=== PATIENT | female | born 1965 | race Caucasian/White ===

== ENCOUNTER → 2018-06-20 | Outpatient (CLI) | payer OTHER ==
--- NOTE | 2018-06-20 14:55 | KCIC ---
EXAM: MRI left shoulder DATE: 06/20/2018 11:00 AM COMPARISON: None INDICATION: Left shoulder pain following injury TECHNIQUE: Multiplanar multisequence MR imaging of the left shoulder was performed without IV contrast. FINDINGS: There is marked edema centered at the AC joint with associated soft tissue edema. This is most suspicious for low-grade AC sprain and associated bony contusion/reactive marrow change without or associated fracture plane. AC joint is congruent. Coracoclavicular ligaments are intact. No os acromiale. Trace subacromial-subdeltoid bursal fluid likely bursitis. No definite rotator cuff tear is identified. Normal muscle signal and bulk. The intra and extra articular long head biceps tendons are seen in good position, intact. Evaluation for labral tear is limited on this nonarthrographic study. Within these constraints, no discrete labral tear is identified. No full-thickness cartilage defect is identified. No fracture or osteonecrosis. IMPRESSION: 1. Edema centered at the AC joint including capsular edema is most consistent with low-grade AC sprain with intact coracoclavicular ligaments. No discrete fracture plane although marrow edema may also be from contusion or reactive. 2. Rotator cuff is intact. 3. The intra-articular and extra-articular long head biceps tendon is intact. Electronically signed by: Oscar Arroyo MD (06/20/2018 2:51 PM) [id number]
== END | disposition home or self-care (01) ==
LOC: KCIC MRI 10:46
PROVIDERS: ATTEND Registered Nurse
DX: M25.412 Effusion, left shoulder (principal)
CPT/HCPCS: 73221

== ENCOUNTER → 2018-08-16 | Outpatient (CLI) | payer OTHER ==
[~2018-08-16] MED LIST: 0.9 % SODIUM CHLORIDE 10 ML DISP.SYRIN. ID ONE; CONTRAST GIVEN. MC PRN; GADOBUTROL 7.5 MMOL/7.5 ML VIAL INT ART ONE; IOHEXOL 300 MG/ML 50 ML VIAL. INT ART ONE; LIDOCAINE 1% Multi-Dose 20 ML VIAL. ID ONE
--- NOTE | 2018-08-16 15:14 | KCIC ---
Fluoroscopic guided left shoulder injection dated 08/16/2018: No comparison available. Clinical Indication: Gadolinium injection for MRI. Technical factors: The potential benefits and risks of the procedure were discussed with the patient and informed consent was obtained. The anterior left shoulder was prepped and draped in a sterile fashion. After local anesthesia, a 22-gauge spinal needle was inserted into the left shoulder joint using an anterior approach.Following negative aspiration, 15 cc's of a solution of 5cc Omnipaque contrast, 5 cc 1% lidocaine, 10 cc normal saline, and 0.1 cc gadolinium was injected without difficulty. The needle was then removed and a dry sterile dressing was applied. The patient was then sent to the MR suite for imaging. The patient tolerated the procedure well. Findings: Single fluoroscopic image shows needle tip at the medial inferior 1/3 of the humeral head. Contrast material extends into the joint space. 34 seconds fluoroscopic time used. One image. Impression: Fluoroscopic guided left shoulder injection for MRI as described above. Electronically signed by: Randall Melara MD (08/16/2018 3:11 PM) [id number]
--- NOTE | 2018-08-16 15:54 | KCIC ---
MR arthrogram left shoulder dated 08/16/2018. Comparison made to 06/20/2018. CLINICAL INDICATION: Left shoulder pain and decreased range of motion. Technique: Fat-saturated T1 weighted imaging performed in the coronal, axial and abduction external rotation planes following the intra-articular injection of dilute gadolinium. Injection portion of the study was performed by different radiologist and procedural details will be reported separately. In addition, standard T2-weighted imaging performed in 3 planes along with a nonfat saturated T1 sagittal sequence. FINDINGS: Again noted is focal T2 hyperintense signal within the marrow of the distal clavicle and acromion with irregularity of the articular surfaces. There is also capsular thickening and periarticular edema, unchanged from prior fracture line. No significant AC separation. No significant subacromial/subdeltoid bursal fluid collection. Marrow signal is otherwise homogeneous. Suprascapular and spinoglenoid notches are clear. No significant muscle edema or muscle atrophy. Minimal increased signal within the supraspinatus tendon footplate. Rotator cuff is otherwise intact. No full-thickness tear or significant partial-thickness defect. Subscapularis is intact. There is some minimal increased signal within the substance along the biceps tendon proximally. Extra articular portion courses within the bicipital groove. Biceps anchor intact. Glenoid labrum is grossly intact. No apparent labral tear or para labral cyst. No glenohumeral joint effusion or loose body. There is adequate distention of the joint space with contrast material. IMPRESSION: 1. Focal edema within the marrow of the distal clavicle and acromion with subtle erosive changes at the AC joint. Findings are similar to prior study. Although this could represent a low-grade AC sprain injury, clavicular osteolysis is another consideration. Consider repetitive microtrauma. Inflammatory or metabolic causes of ostial lysis should also be considered. 2. Mild rotator cuff tendinopathy with no evidence of full-thickness tear. 3. Mild proximal biceps tendinosis. 4. No evidence of labral tear. Electronically signed by: Randall Melara MD (08/16/2018 3:51 PM) [id number]
== END | disposition home or self-care (01) ==
LOC: KCIC 13:48
PROVIDERS: ATTEND Registered Nurse
DX: M75.102 Unspecified rotator cuff tear or rupture of left shoulder, not specified as traumatic (principal); M75.22 Bicipital tendinitis, left shoulder; J44.9 Chronic obstructive pulmonary disease, unspecified; F17.210 Nicotine dependence, cigarettes, uncomplicated
CPT/HCPCS: 23350; 73040; 73222; A9585; Q9967